=== PATIENT | female | born 1940 | race Hispanic/Latino ===

== ENCOUNTER 2017-10-27 10:42 | Inpatient (IN) | payer MEDICARE, MEDICAID ==
[2017-10-27 12:33] LABS: Basophils % (Auto) 0.5 % (0.0-1.8); Eosinophils % (Auto) 0.1 % (0.0-4.3); Hemoglobin 14.6 gm/dl (10.1-14.3); Lymphocytes % (Auto) 17.4 % (13.4-35.0); Mean Corpuscular HGB Conc 33 % (30-34); Mean Corpuscular Hemoglobin 30 pg (28-32); Mean Corpuscular Volume 91 fl (79-97); Monocytes # (Auto) 0.9 K/mm3 (0.0-0.8); Monocytes % (Auto) 15.7 % (0.0-7.3); Platelet Count 213 K/mm3 (140-440); Red Blood Count 4.84 M/mm3 (3.65-5.03); Red Cell Distribution Width 13.4 % (13.2-15.2)
[2017-10-27] MEDS ORDERED: NACL 0.9% 1000 ML 1,000 ML IV ONE (12:41)
[2017-10-27 12:46] LABS: Bilirubin,Urine NEG (Negative); Blood,Urine MOD (Negative); Color,Urine Yellow (Yellow); Mucus,Urine 3+ /HPF; Nitrite,Urine NEG (Negative); Protein,Urine <15 mg/dL mg/dL (Negative)
[2017-10-27 12:47] LABS: Creatine Kinase MB 1.2 ng/mL (0.0-4.0)
[2017-10-27 12:51] LABS: BUN/Creatinine Ratio 14; Blood Urea Nitrogen 14 mg/dL (7-17); Calcium 9.4 mg/dL (8.4-10.2); Hemolysis Index 6
[2017-10-27 12:58] LABS: Free T4 (Free Thyroxine) 1.14 ng/dL (0.76-1.46)
--- NOTE | 2017-10-27 13:15 | XRay Report ---
AP CHEST: HISTORY: Generalized weakness, cough AP view of the chest demonstrates a normal mediastinal and cardiac contour with clear lungs and normal bony and soft tissue structures. IMPRESSION: No acute cardiopulmonary process identified.
--- NOTE | 2017-10-27 15:10 | Cat Scan Report ---
CT HEAD WITHOUT CONTRAST: HISTORY: Generalized weakness. TECHNIQUE: Sequential CT images without contrast. FINDINGS: Images obtained show bilateral prominence of the sulci and ventricles. There are no abnormal intra- or extra-axial blood or fluid collections. There are no focal masses or evidence of mass effect. The fontenot white matter differentiation appears within normal limits. Regions of periventricular decreased attenuation are consistent with microangiopathic ischemic disease. The posterior fossa structures including the fourth ventricle, cerebellum, and brainstem appear normal. IMPRESSION: Evidence of atrophy and microangiopathic ischemic disease. No acute intracranial process noted.
--- NOTE | 2017-10-27 15:28 | Emergency Department Report ---
- General Chief complaint: Weakness Stated complaint: GENERAl WEAKNESS Time Seen by Provider: 10/27/17 11:41 Source: patient Mode of arrival: Stretcher Limitations: No Limitations - History of Present Illness Initial comments: 76-year-old female the past medical history diabetes and Parkinson's disease presents to the hospital complaining of generalized weakness 2-4 days. Prior to this patient to ambulate without assistance. The last 3-4 days patient is not eating, drinking, and cannot ambulates without significant support. Patient states she does have occasional chest pain but no chest pain today. Dry cough reported. Daughter reports fever 102.6 yesterday. Patient denies abdominal pain, dysuria, or shortness of breath. - Related Data Allergies Allergy/AdvReac Type Severity Reaction Status Date / Time Penicillins Allergy Anaphylaxis Verified 10/27/17 11:24 ED Review of Systems ROS: Stated complaint: GENERAl WEAKNESS Other details as noted in HPI Comment: All other systems reviewed and negative Other: Constitutional: No fevers chills Eyes: No eye pain visual changes ENT: No ear pain or throat pain Neck: Denies pain Respiratory: Denies cough wheezing shortness of breath Cardiovascular: Denies palpitations, syncope GI: Denies abdominal pain, nausea, vomiting, diarrhea : Denies dysuria Musculoskeletal: Denies back pain Skin: Denies rash, lesions, erythema Neurologic: Denies headache, numbness Psychiatric: Denies suicidal ideation, hallucinations ED Past Medical Hx - Past Medical History Hx Diabetes: Yes Additional medical history: parkinsons - Surgical History Past Surgical History?: Yes - Social History Smoking Status: Current Every Day Smoker Substance Use Type: None ED Physical Exam - General Limitations: No Limitations - Other Other exam information: General: No limitations, patient is alert in no acute distress Head exam: Atraumatic, normocephalic Eyes exam: Normal appearance ENT: Moist mucous membrane, normal oropharynx Neck exam: Normal inspection, full range of motion, no meningismus nontender Respiratory exam: Clear to auscultation bilateral, no wheezes, rales, crackles Cardiovascular: Normal rate and rhythm Abdomen: Soft, nondistended, and nontender, with normal bowel sounds, no rebound, or guarding Extremity: Full range of motion normal inspection no deformity Back: Normal Inspection, full range of motion, no tenderness Neurologic: Alert, oriented x3, cranial nerves intact, equal hand licensed tax consultant, equal foot dorsiflexion, however, patient cannot stand without assistance and unable to ambulate without assistive Psychiatric: normal affect, normal mood Skin: Warm, dry, intact ED Course Vital Signs 10/27/17 11:25 Temperature 99.1 F Pulse Rate 98 H Respiratory 16 Rate Blood Pressure 157/71 O2 Sat by Pulse 97 Oximetry - Reevaluation(s) Reevaluation #1: 10/27/17 15:59 Cause of generalized weakness identified at this time. With the Basom form it does show increase in heart rate with standing. Patient complains of lightheadedness with standing and unsteady gait. She will be admitted to the hospital for further evaluation ED Medical Decision Making - Lab Data Result diagrams: 10/27/17 12:00 10/27/17 12:00 Lab Results 10/27/17 10/27/17 10/27/17 Range/Units 12:00 12:00 12:00 WBC 5.6 (4.5-11.0) K/mm3 RBC 4.84 (3.65-5.03) M/mm3 Hgb 14.6 H (10.1-14.3) gm/dl Hct 44.0 H (30.3-42.9) % MCV 91 (79-97) fl MCH 30 (28-32) pg MCHC 33 (30-34) % RDW 13.4 (13.2-15.2) % Plt Count 213 (140-440) K/mm3 Lymph % (Auto) 17.4 (13.4-35.0) % [place] % (Auto) 15.7 H (0.0-7.3) % Eos % (Auto) 0.1 (0.0-4.3) % Baso % (Auto) 0.5 (0.0-1.8) % Lymph # 1.0 L (1.2-5.4) K/mm3 [place] # 0.9 H (0.0-0.8) K/mm3 Eos # 0.0 (0.0-0.4) K/mm3 Baso # 0.0 (0.0-0.1) K/mm3 Seg Neutrophils % 66.3 (40.0-70.0) % Seg Neutrophils # 3.7 (1.8-7.7) K/mm3 Sodium 139 (137-145) mmol/L Potassium 4.2 (3.6-5.0) mmol/L Chloride 97.4 L (98-107) mmol/L Carbon Dioxide 25 (22-30) mmol/L Anion Gap 21 mmol/L BUN 14 (7-17) mg/dL Creatinine 1.0 (0.7-1.2) mg/dL Estimated GFR 54 ml/min BUN/Creatinine Ratio 14 % Glucose 119 H (65-100) mg/dL Calcium 9.4 (8.4-10.2) mg/dL Magnesium 2.20 (1.7-2.3) mg/dL Total Creatine Kinase 269 H (30-135) units/L CK-MB (CK-2) 1.2 (0.0-4.0) ng/mL CK-MB (CK-2) Rel Index 0.4 (0-4) Troponin T < 0.010 (0.00-0.029) ng/mL TSH 1.240 (0.270-4.200) mlU/mL Free T4 1.14 (0.76-1.46) ng/dL Urine Color (Yellow) Urine Turbidity (Clear) Urine pH (5.0-7.0) Ur Specific [place] (1.003-1.030) Urine Protein (Negative) mg/dL Urine Glucose (UA) (Negative) mg/dL Urine Ketones (Negative) mg/dL Urine Blood (Negative) Urine Nitrite (Negative) Urine Bilirubin (Negative) Urine Urobilinogen (<2.0) mg/dL Ur Leukocyte Esterase (Negative) Urine WBC (Auto) (0.0-6.0) /HPF Urine RBC (Auto) (0.0-6.0) /HPF U Epithel Cells (Auto) (0-13.0) /HPF Urine Mucus /HPF 10/27/17 Range/Units 12:23 WBC (4.5-11.0) K/mm3 RBC (3.65-5.03) M/mm3 Hgb (10.1-14.3) gm/dl Hct (30.3-42.9) % MCV (79-97) fl MCH (28-32) pg MCHC (30-34) % RDW (13.2-15.2) % Plt Count (140-440) K/mm3 Lymph % (Auto) (13.4-35.0) % [place] % (Auto) (0.0-7.3) % Eos % (Auto) (0.0-4.3) % Baso % (Auto) (0.0-1.8) % Lymph # (1.2-5.4) K/mm3 [place] # (0.0-0.8) K/mm3 Eos # (0.0-0.4) K/mm3 Baso # (0.0-0.1) K/mm3 Seg Neutrophils % (40.0-70.0) % Seg Neutrophils # (1.8-7.7) K/mm3 Sodium (137-145) mmol/L Potassium (3.6-5.0) mmol/L Chloride (98-107) mmol/L Carbon Dioxide (22-30) mmol/L Anion Gap mmol/L BUN (7-17) mg/dL Creatinine (0.7-1.2) mg/dL Estimated GFR ml/min BUN/Creatinine Ratio % Glucose (65-100) mg/dL Calcium (8.4-10.2) mg/dL Magnesium (1.7-2.3) mg/dL Total Creatine Kinase (30-135) units/L CK-MB (CK-2) (0.0-4.0) ng/mL CK-MB (CK-2) Rel Index (0-4) Troponin T (0.00-0.029) ng/mL TSH (0.270-4.200) mlU/mL Free T4 (0.76-1.46) ng/dL Urine Color Yellow (Yellow) Urine Turbidity Clear (Clear) Urine pH 5.0 (5.0-7.0) Ur Specific [place] 1.020 (1.003-1.030) Urine Protein <15 mg/dl (Negative) mg/dL Urine Glucose (UA) Neg (Negative) mg/dL Urine Ketones Tr (Negative) mg/dL Urine Blood Mod (Negative) Urine Nitrite Neg (Negative) Urine Bilirubin Neg (Negative) Urine Urobilinogen 2.0 (<2.0) mg/dL Ur Leukocyte Esterase Neg (Negative) Urine WBC (Auto) 3.0 (0.0-6.0) /HPF Urine RBC (Auto) 19.0 (0.0-6.0) /HPF U Epithel Cells (Auto) 1.0 (0-13.0) /HPF Urine Mucus 3+ /HPF - EKG Data -: EKG Interpreted by Me (anteroseptal infarct) EKG shows normal: sinus rhythm, axis (29), QRS complexes (78), ST-T waves (no stemi/t inv) Rate: normal (90) - EKG Data When compared to previous EKG there are: previous EKG unavailable - Radiology Data Radiology results: report reviewed Read by radiology Chest x-ray: no acute findings CTA, evidence of atrophy and microangiopathic ischemic disease. No acute intracranial process - Medical Decision Making Normal saline initiated IV 125 mL per hour. source of generalized weakness and identified. Plan to admit for further workup - Differential Diagnosis infection, encephalopathy, dehydration, anemia, PA, thyroid disease, stroke Critical Care Time: No Critical care attestation.: If time is entered above; I have spent that time in minutes in the direct care of this critically ill patient, excluding procedure time. ED Disposition Clinical Impression: Generalized weakness, Poor appetite, Dehydration Disposition: DC-[id number] OP ADMIT IP TO THIS HOSP Is pt being admited?: Yes Time of Disposition: 16:03 (Dr Lovelace/hosp)
[2017-10-27] MEDS ORDERED: TYLENOL PO ONE (16:39)
[2017-10-27] MEDS ORDERED: TYLENOL ONE (16:40)
--- NOTE | 2017-10-27 19:10 | History and Physical Report ---
History of Present Illness Date of examination: 10/27/17 Date of admission: 10/27/17 Chief complaint: CC Fever and Gen weakness for 4 days History of present illness: History of Present Illness 76-year-old female with past medical history of diabetes and Parkinson's disease presents to the hospital complaining of generalized weakness for3-4 days. Prior to this patient to ambulate without assistance. The last 3-4 days patient is not eating, drinking, and cannot ambulates without significant support. Patient states she does have occasional chest pain but no chest pain today. Dry cough reported. Daughter reports fever 102.6 yesterday. Patient denies abdominal pain, dysuria, or shortness of breath. Past Medical History T2DM HTN HLD Osteoporosis Surgical History Past Surgical History?: Yes Social History Smoking Status: Current Every Day Smoker -1ppd Substance Use Type: None Review of Systems Stated complaint: GENERAl WEAKNESS Other details as noted in HPI Comment: All other systems reviewed and negative Other: Constitutional: No fevers chills Eyes: No eye pain visual changes ENT: No ear pain or throat pain Neck: Denies pain Respiratory: Denies cough wheezing shortness of breath Cardiovascular: Denies palpitations, syncope GI: Denies abdominal pain, nausea, vomiting, diarrhea : Denies dysuria Musculoskeletal: Denies back pain Skin: Denies rash, lesions, erythema Neurologic: Denies headache, numbness Psychiatric: Denies suicidal ideation, hallucinations Medications and Allergies Allergies Allergy/AdvReac Type Severity Reaction Status Date / Time Penicillins Allergy Anaphylaxis Verified 10/27/17 11:24 Home Medications Medication Instructions Recorded Confirmed Last Taken Type Alendronate Sodium [Fosamax] 70 mg PO QWEEK 10/27/17 10/27/17 10/25/17 History Aspirin [Adult Low Dose Aspirin EC] 81 mg PO DAILY 10/27/17 10/27/17 10/25/17 History Ezetimibe [Zetia] 10 mg PO QDAY 10/27/17 10/27/17 10/25/17 History Gabapentin [Neurontin] 100 mg PO DAILY 10/27/17 10/27/17 10/25/17 History Oxybutynin [Ditropan] 5 mg PO DAILY 10/27/17 10/27/17 10/25/17 History amLODIPine [Norvasc] 5 mg PO DAILY 10/27/17 10/27/17 10/25/17 History metFORMIN [Glucophage] 500 mg PO QDAY 10/27/17 10/27/17 10/25/17 History Active Meds: Active Medications Sodium Chloride (Nacl 0.9% 1000 Ml) 1,000 mls @ 125 mls/hr IV ONCE ONE Stop: 10/27/17 20:40 Last Admin: 10/27/17 13:27 Dose: 125 mls/hr Exam - Constitutional Vitals: Temp Pulse Resp BP Pulse Ox 99.4 F 98 H 16 116/58 92 10/27/17 18:10 10/27/17 11:25 10/27/17 11:25 10/27/17 18:00 10/27/17 18:00 General appearance: Present: no acute distress, well-nourished - EENT Eyes: Present: PERRL ENT: hearing intact, clear oral mucosa - Neck Neck: Present: supple, normal ROM - Respiratory Respiratory effort: normal Respiratory: bilateral: CTA - Cardiovascular Heart rate: 76 Rhythm: regular Heart Sounds: Present: S1 & S2. Absent: rub, click - Extremities Extremities: no ischemia, pulses intact, pulses symmetrical, No edema Peripheral Pulses: within normal limits - Abdominal General gastrointestinal: Present: soft, non-tender, non-distended, normal bowel sounds Female genitourinary: Present: normal - Rectal Rectal Exam: deferred - Integumentary Integumentary: Present: clear, warm, dry - Musculoskeletal Musculoskeletal: gait normal, strength equal bilaterally - Psychiatric Psychiatric: appropriate mood/affect, intact judgment & insight - Neurologic Neurologic: CNII-XII intact, moves all extremities - Allied Health Allied health notes reviewed: nursing, case management Results - Labs CBC & Chem 7: 10/28/17 04:54 10/28/17 04:54 Labs: Laboratory Last Values WBC 5.6 K/mm3 (4.5-11.0) 10/27/17 12:00 RBC 4.84 M/mm3 (3.65-5.03) 10/27/17 12:00 Hgb 14.6 gm/dl (10.1-14.3) H 10/27/17 12:00 Hct 44.0 % (30.3-42.9) H 10/27/17 12:00 MCV 91 fl (79-97) 10/27/17 12:00 MCH 30 pg (28-32) 10/27/17 12:00 MCHC 33 % (30-34) 10/27/17 12:00 RDW 13.4 % (13.2-15.2) 10/27/17 12:00 Plt Count 213 K/mm3 (140-440) 10/27/17 12:00 Lymph % (Auto) 17.4 % (13.4-35.0) 10/27/17 12:00 [place] % (Auto) 15.7 % (0.0-7.3) H 10/27/17 12:00 Eos % (Auto) 0.1 % (0.0-4.3) 10/27/17 12:00 Baso % (Auto) 0.5 % (0.0-1.8) 10/27/17 12:00 Lymph # 1.0 K/mm3 (1.2-5.4) L 10/27/17 12:00 [place] # 0.9 K/mm3 (0.0-0.8) H 10/27/17 12:00 Eos # 0.0 K/mm3 (0.0-0.4) 10/27/17 12:00 Baso # 0.0 K/mm3 (0.0-0.1) 10/27/17 12:00 Seg Neutrophils % 66.3 % (40.0-70.0) 10/27/17 12:00 Seg Neutrophils # 3.7 K/mm3 (1.8-7.7) 10/27/17 12:00 Sodium 139 mmol/L (137-145) 10/27/17 12:00 Potassium 4.2 mmol/L (3.6-5.0) 10/27/17 12:00 Chloride 97.4 mmol/L (98-107) L 10/27/17 12:00 Carbon Dioxide 25 mmol/L (22-30) 10/27/17 12:00 Anion Gap 21 mmol/L 10/27/17 12:00 BUN 14 mg/dL (7-17) 10/27/17 12:00 Creatinine 1.0 mg/dL (0.7-1.2) 10/27/17 12:00 Estimated GFR 54 ml/min 10/27/17 12:00 BUN/Creatinine Ratio 14 % 10/27/17 12:00 Glucose 119 mg/dL (65-100) H 10/27/17 12:00 Calcium 9.4 mg/dL (8.4-10.2) 10/27/17 12:00 Magnesium 2.20 mg/dL (1.7-2.3) 10/27/17 12:00 Total Creatine Kinase 269 units/L (30-135) H 10/27/17 12:00 CK-MB (CK-2) 1.2 ng/mL (0.0-4.0) 10/27/17 12:00 CK-MB (CK-2) Rel Index 0.4 (0-4) 10/27/17 12:00 Troponin T < 0.010 ng/mL (0.00-0.029) 10/27/17 12:00 TSH 1.240 mlU/mL (0.270-4.200) 10/27/17 12:00 Free T4 1.14 ng/dL (0.76-1.46) 10/27/17 12:00 Urine Color Yellow (Yellow) 10/27/17 12:23 Urine Turbidity Clear (Clear) 10/27/17 12:23 Urine pH 5.0 (5.0-7.0) 10/27/17 12:23 Ur Specific [place] 1.020 (1.003-1.030) 10/27/17 12:23 Urine Protein <15 mg/dl mg/dL (Negative) 10/27/17 12:23 Urine Glucose (UA) Neg mg/dL (Negative) 10/27/17 12:23 Urine Ketones Tr mg/dL (Negative) 10/27/17 12:23 Urine Blood Mod (Negative) 10/27/17 12:23 Urine Nitrite Neg (Negative) 10/27/17 12:23 Urine Bilirubin Neg (Negative) 10/27/17 12:23 Urine Urobilinogen 2.0 mg/dL (<2.0) 10/27/17 12:23 Ur Leukocyte Esterase Neg (Negative) 10/27/17 12:23 Urine WBC (Auto) 3.0 /HPF (0.0-6.0) 10/27/17 12:23 Urine RBC (Auto) 19.0 /HPF (0.0-6.0) 10/27/17 12:23 U Epithel Cells (Auto) 1.0 /HPF (0-13.0) 10/27/17 12:23 Urine Mucus 3+ /HPF 10/27/17 12:23 - Imaging and Cardiology EKG: report reviewed Chest x-ray: report reviewed (NAF) CT Scan - head: report reviewed (NAF) Assessment and Plan Advance Directives: Yes (Full code) VTE prophylaxis?: Chemical Plan of care discussed with patient/family: Yes - Patient Problems (1) SIRS (systemic inflammatory response syndrome) Current Visit: Yes Status: Acute Plan to address problem: Fever of 101.4 in ED.Also fever for 3 to 4 days.No source of infection identified.Willtreat empirically. Patient unable to walk b/c of weakness.Probably from fever.Was eating by herself when i went to examine the patient.Will get ID consult (2) Dehydration Current Visit: Yes Status: Acute Plan to address problem: IV fluids (3) Physical debility Current Visit: Yes Status: Acute Plan to address problem: Probably sec to Fever and Dehydration. PT ordered.May benefit from Home PT (4) Age related osteoporosis Current Visit: Yes Status: Chronic Qualifiers: Presence of current pathological fracture: without current pathological fracture Qualified Code(s): M81.0 - Age-related osteoporosis without current pathological fracture Plan to address problem: Patient on Aledronate.Will discontinue .May benefit only from Caltrate-D (5) HTN (hypertension) Current Visit: Yes Status: Chronic Qualifiers: Hypertension type: essential hypertension Qualified Code(s): I10 - Essential (primary) hypertension Plan to address problem: Cont Antihypertensives. 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
[2017-10-27] MEDS ORDERED: ZOFRAN IV PRN (19:11)
[2017-10-27] MEDS ORDERED: TYLENOL PO PRN (19:11)
[2017-10-27] MEDS ORDERED: MILK OF MAGNESIA PO PRN (19:11)
[2017-10-27] MEDS ORDERED: PERCOCET 5/325 PO PRN (19:11)
[2017-10-27] MEDS ORDERED: DULCOLAX PR PRN (19:11)
[2017-10-27] MEDS ORDERED: AMBIEN PO PRN (19:11)
[2017-10-27] MEDS ORDERED: NOVOLOG SUB-Q ONE ×2 (19:21→20:44)
[2017-10-27] MEDS ORDERED: NORVASC PO SCH (20:00)
[2017-10-27] MEDS: cefTRIAXone 2 GM in NACL 0.9% 20 ML IV SCH (20:31)
[2017-10-27] MEDS ORDERED: LOVENOX SUB-Q ONE (20:45)
[2017-10-27] MEDS: LOVENOX SUB-Q SCH (20:52)
[2017-10-27] MEDS: D5NS 1,000 ML IV SCH (22:35)
[2017-10-27] MEDS: DITROPAN PO SCH (22:35)
[2017-10-28 06:10] LABS: Hematocrit 38.7 % (30.3-42.9); Hemoglobin 13.3 gm/dl (10.1-14.3); Mean Corpuscular HGB Conc 34 % (30-34); Mean Corpuscular Hemoglobin 31 pg (28-32); Mean Corpuscular Volume 89 fl (79-97); Platelet Count 192 K/mm3 (140-440); Red Blood Count 4.36 M/mm3 (3.65-5.03); Red Cell Distribution Width 13.3 % (13.2-15.2)
[2017-10-28 06:28] LABS: Alanine Aminotransferase 11 units/L (7-56); Albumin 3.1 g/dL (3.9-5); BUN/Creatinine Ratio 16; Blood Urea Nitrogen 13 mg/dL (7-17); Hemolysis Index 9
[2017-10-28 07:15] LABS: Basophils % (Manual) 0 % (0.0-1.8); Total Cells Counted 100
[2017-10-28 07:16] LABS: Platelet Estimate Consistent w Auto; RBC Morphology Normal
[2017-10-28] MEDS ORDERED: D50W (25GM) Syringe IV PRN (07:30)
--- NOTE | 2017-10-28 07:32 | Progress Note ---
Assessment and Plan Assessment and plan: 76-year-old female admitted to the floor shows presented to the emergency department with complaints of fever, generalized weakness, decreased oral intake Dehydration - Patient was treated with IV fluids SIRS - patient was given empiric antibiotics - We'll follow culture results Hypertension - Currently borderline hypotension - held blood pressure medications Malnutrition -nutrition consult Debility - Physical therapy consult Diabetes Mellitus - On sliding scale insulin, Accu-Chek, ADA diet, will follow A1c History Interval history: No nursing issues overnight, no fever over the last 24 hours Hospitalist Physical - Physical exam Narrative exam: Not in cardiopulmonary distress. The patient appeared well nourished and normally developed. Vital signs as documented. Head exam is unremarkable. No scleral icterus . Neck is without jugular venous distension, thyromegaly, or carotid bruits. Lungs are clear to auscultation. Cardiac exam reveals regular rate and Rhythm. First and second heart sounds normal. No murmurs, rubs or gallops. Abdominal exam reveals normal bowel sounds, no masses, no organomegaly and no aortic enlargement. Extremities are nonedematous and both femoral and pedal pulses are normal. OTOLARYNGOLOGY REP: Alert and oriented 3. No focal weakness. - Constitutional Vitals: Temp Pulse Resp BP Pulse Ox 98.9 F 84 18 102/63 96 10/27/17 20:15 10/27/17 22:00 10/27/17 22:00 10/27/17 22:12 10/27/17 22:12 General appearance: Present: no acute distress, well-nourished Results - Labs CBC & Chem 7: 10/28/17 04:54 10/28/17 04:54 Labs: Laboratory Last Values WBC 4.1 K/mm3 (4.5-11.0) L 10/28/17 04:54 RBC 4.36 M/mm3 (3.65-5.03) 10/28/17 04:54 Hgb 13.3 gm/dl (10.1-14.3) 10/28/17 04:54 Hct 38.7 % (30.3-42.9) 10/28/17 04:54 MCV 89 fl (79-97) 10/28/17 04:54 MCH 31 pg (28-32) 10/28/17 04:54 MCHC 34 % (30-34) 10/28/17 04:54 RDW 13.3 % (13.2-15.2) 10/28/17 04:54 Plt Count 192 K/mm3 (140-440) 10/28/17 04:54 Lymph % (Auto) 17.4 % (13.4-35.0) 10/27/17 12:00 [place] % (Auto) Pbx Technician 10/28/17 04:54 Eos % (Auto) 0.1 % (0.0-4.3) 10/27/17 12:00 Baso % (Auto) 0.5 % (0.0-1.8) 10/27/17 12:00 Lymph # 1.0 K/mm3 (1.2-5.4) L 10/27/17 12:00 [place] # 0.9 K/mm3 (0.0-0.8) H 10/27/17 12:00 Eos # 0.0 K/mm3 (0.0-0.4) 10/27/17 12:00 Baso # 0.0 K/mm3 (0.0-0.1) 10/27/17 12:00 Add Manual Diff Complete 10/28/17 04:54 Total Counted 100 10/28/17 04:54 Seg Neutrophils % 66.3 % (40.0-70.0) 10/27/17 12:00 Seg Neuts % (Manual) 58.0 % (40.0-70.0) 10/28/17 04:54 Band Neutrophils % 0 % 10/28/17 04:54 Lymphocytes % (Manual) 22.0 % (13.4-35.0) 10/28/17 04:54 Reactive Lymphs % (Man) 0 % 10/28/17 04:54 Monocytes % (Manual) 19.0 % (0.0-7.3) H 10/28/17 04:54 Eosinophils % (Manual) 1.0 % (0.0-4.3) 10/28/17 04:54 Basophils % (Manual) 0 % (0.0-1.8) 10/28/17 04:54 Metamyelocytes % 0 % 10/28/17 04:54 Myelocytes % 0 % 10/28/17 04:54 Promyelocytes % 0 % 10/28/17 04:54 Blast Cells % 0 % 10/28/17 04:54 Nucleated RBC % Not Reportable 10/28/17 04:54 Seg Neutrophils # 3.7 K/mm3 (1.8-7.7) 10/27/17 12:00 Seg Neutrophils # Man 2.4 K/mm3 (1.8-7.7) 10/28/17 04:54 Band Neutrophils # 0.0 K/mm3 10/28/17 04:54 Lymphocytes # (Manual) 0.9 K/mm3 (1.2-5.4) L 10/28/17 04:54 Abs React Lymphs (Man) 0.0 K/mm3 10/28/17 04:54 Monocytes # (Manual) 0.8 K/mm3 (0.0-0.8) 10/28/17 04:54 Eosinophils # (Manual) 0.0 K/mm3 (0.0-0.4) 10/28/17 04:54 Basophils # (Manual) 0.0 K/mm3 (0.0-0.1) 10/28/17 04:54 Metamyelocytes # 0.0 K/mm3 10/28/17 04:54 Myelocytes # 0.0 K/mm3 10/28/17 04:54 Promyelocytes # 0.0 K/mm3 10/28/17 04:54 Blast Cells # 0.0 K/mm3 10/28/17 04:54 WBC Morphology Not Reportable 10/28/17 04:54 Hypersegmented Neuts Not Reportable 10/28/17 04:54 Hyposegmented Neuts Not Reportable 10/28/17 04:54 Hypogranular Neuts Not Reportable 10/28/17 04:54 Smudge Cells Not Reportable 10/28/17 04:54 Toxic Granulation Not Reportable 10/28/17 04:54 Toxic Vacuolation Not Reportable 10/28/17 04:54 Dohle Bodies Not Reportable 10/28/17 04:54 Pelger-Huet Anomaly Not Reportable 10/28/17 04:54 Josephine Rods Not Reportable 10/28/17 04:54 Platelet Estimate Consistent w auto 10/28/17 04:54 Clumped Platelets Not Reportable 10/28/17 04:54 Plt Clumps, EDTA Not Reportable 10/28/17 04:54 Large Platelets Not Reportable 10/28/17 04:54 Giant Platelets Not Reportable 10/28/17 04:54 Platelet Satelliting Not Reportable 10/28/17 04:54 Plt Morphology Comment Not Reportable 10/28/17 04:54 RBC Morphology Normal 10/28/17 04:54 Dimorphic RBCs Not Reportable 10/28/17 04:54 Polychromasia Not Reportable 10/28/17 04:54 Hypochromasia Not Reportable 10/28/17 04:54 Poikilocytosis Not Reportable 10/28/17 04:54 Anisocytosis Not Reportable 10/28/17 04:54 Microcytosis Not Reportable 10/28/17 04:54 Macrocytosis Not Reportable 10/28/17 04:54 Spherocytes Not Reportable 10/28/17 04:54 Pappenheimer Bodies Not Reportable 10/28/17 04:54 Sickle Cells Not Reportable 10/28/17 04:54 Target Cells Not Reportable 10/28/17 04:54 Tear Drop Cells Not Reportable 10/28/17 04:54 Ovalocytes Not Reportable 10/28/17 04:54 Helmet Cells Not Reportable 10/28/17 04:54 [place]hal[place]wal-[place] Bodies Not Reportable 10/28/17 04:54 [place] Rings Not Reportable 10/28/17 04:54 [place] Cells Not Reportable 10/28/17 04:54 Bite Cells Not Reportable 10/28/17 04:54 Crenated Cell Not Reportable 10/28/17 04:54 Elliptocytes Not Reportable 10/28/17 04:54 Acanthocytes (Spur) Not Reportable 10/28/17 04:54 Rouleaux Not Reportable 10/28/17 04:54 Hemoglobin C Crystals Not Reportable 10/28/17 04:54 Schistocytes Not Reportable 10/28/17 04:54 Malaria parasites Not Reportable 10/28/17 04:54 Solomon Bodies Not Reportable 10/28/17 04:54 Hem Pathologist Commnt No 10/28/17 04:54 Sodium 139 mmol/L (137-145) 10/28/17 04:54 Potassium 3.7 mmol/L (3.6-5.0) 10/28/17 04:54 Chloride 101.1 mmol/L (98-107) 10/28/17 04:54 Carbon Dioxide 22 mmol/L (22-30) 10/28/17 04:54 Anion Gap 20 mmol/L 10/28/17 04:54 BUN 13 mg/dL (7-17) 10/28/17 04:54 Creatinine 0.8 mg/dL (0.7-1.2) 10/28/17 04:54 Estimated GFR > 60 ml/min 10/28/17 04:54 BUN/Creatinine Ratio 16 % 10/28/17 04:54 Glucose 180 mg/dL (65-100) H 10/28/17 04:54 POC Glucose 150 (70-105) H 10/27/17 20:22 Calcium 8.0 mg/dL (8.4-10.2) L 10/28/17 04:54 Magnesium 2.20 mg/dL (1.7-2.3) 10/27/17 12:00 Total Bilirubin 0.20 mg/dL (0.1-1.2) 10/28/17 04:54 AST 22 units/L (5-40) 10/28/17 04:54 ALT 11 units/L (7-56) 10/28/17 04:54 Alkaline Phosphatase 46 units/L (35-129) 10/28/17 04:54 Total Creatine Kinase 269 units/L (30-135) H 10/27/17 12:00 CK-MB (CK-2) 1.2 ng/mL (0.0-4.0) 10/27/17 12:00 CK-MB (CK-2) Rel Index 0.4 (0-4) 10/27/17 12:00 Troponin T < 0.010 ng/mL (0.00-0.029) 10/27/17 12:00 Total Protein 6.6 g/dL (6.3-8.2) 10/28/17 04:54 Albumin 3.1 g/dL (3.9-5) L 10/28/17 04:54 Albumin/Globulin Ratio 0.9 % 10/28/17 04:54 TSH 1.240 mlU/mL (0.270-4.200) 10/27/17 12:00 Free T4 1.14 ng/dL (0.76-1.46) 10/27/17 12:00 Urine Color Yellow (Yellow) 10/27/17 12:23 Urine Turbidity Clear (Clear) 10/27/17 12:23 Urine pH 5.0 (5.0-7.0) 10/27/17 12:23 Ur Specific [place] 1.020 (1.003-1.030) 10/27/17 12:23 Urine Protein <15 mg/dl mg/dL (Negative) 10/27/17 12:23 Urine Glucose (UA) Neg mg/dL (Negative) 10/27/17 12:23 Urine Ketones Tr mg/dL (Negative) 10/27/17 12:23 Urine Blood Mod (Negative) 10/27/17 12:23 Urine Nitrite Neg (Negative) 10/27/17 12:23 Urine Bilirubin Neg (Negative) 10/27/17 12:23 Urine Urobilinogen 2.0 mg/dL (<2.0) 10/27/17 12:23 Ur Leukocyte Esterase Neg (Negative) 10/27/17 12:23 Urine WBC (Auto) 3.0 /HPF (0.0-6.0) 10/27/17 12:23 Urine RBC (Auto) 19.0 /HPF (0.0-6.0) 10/27/17 12:23 U Epithel Cells (Auto) 1.0 /HPF (0-13.0) 10/27/17 12:23 Urine Mucus 3+ /HPF 10/27/17 12:23
[2017-10-28] MEDS: D5NS 1,000 ML IV SCH (07:45)
[2017-10-28] MEDS: DITROPAN PO SCH (09:04)
[2017-10-28] MEDS: NOVOLOG SUB-Q SCH ×4 (09:04→23:32)
[2017-10-28] MEDS: HALFPRIN EC PO SCH (09:04)
[2017-10-28] MEDS: LOVENOX SUB-Q SCH (09:04)
[2017-10-28] MEDS ORDERED: ROCEPHIN/NS 2 GM/100 ML 2 GM/100 ML BAG IV SCH (10:00)
[2017-10-28] MEDS ORDERED: GUAIFENESIN DM SYRUP PO PRN (10:10)
[2017-10-28] MEDS: NACL 0.9% 1000 ML 1,000 ML IV SCH ×2 (10:50→22:29)
--- NOTE | 2017-10-28 11:28 | Query- Nutrition ---
Deajackelyn Jang Date:__10/28/2017 Information Systems Architect/CDS:___Dee Phone#:[phone] Exercise your independent professional judgment when responding to query. Questions asked do not imply a particular answer is desired or expected. We greatly appreciate your clarification on this issue. Clinical Documentation States: 76 Year old famle was admitted on 10/27/2017 with complaints of fever, generalized weakness, decreased oral intake. The Hospitalist (Sr. Nicolas) progress note on 10/28/2017 states "Dehydration - Patient was treated with IV fluids Malnutrition -nutrition consult Debility - Physical therapy consult." Clinical Findings Show: Albumin: 3.1 Please select the most appropriate option 3 [] Mild Malnutrition [x] Mild - Moderate Malnutrition [] Moderate - Severe Malnutrition [] Severe Malnutrition Serum Albumin 2.8 to 3.4 g/dl or Pre-albumin 5 to 17 mg/dl1,2 Inadequate nutritional intake1,2,3,4 NPO > 5 days Weight loss: 5% in 1 month or 7.5% in 3 months or 10% in 6 months1, 3,4 BMI 16 to 18.4 or Weight <90% of ideal body weight1,2,3,4 Serum Albumin < 2.8 g/ dl1,2 Lymphocytes < 1500/ L2 Inadequate nutritional intake3, high stress e.g. major trauma, sepsis,pancreatitis, rolle etc. Decubitus ulcers1,2, , skin breakdown2, easy hair pluckability2 Weight <80% standard for height2 Triceps skin fold <3 mm2 Mid-arm muscle circumference <15 cm2 Creatinine-height index <60% standard2 [ ] Cachexia [ ] Emaciated w/Malnutrition [ ] Other: [ ] Unable to determine [ ] Comment/Explanation: Present on Admission: [x ] Yes (Y) [ ] Clinically undeterminable (W) [ ] No (N) Please also document response in your Progress Notes and/or Discharge Summary and indicate if the condition was present on admission. MTDD
[2017-10-28] MEDS: HABITROL TD SCH (13:59)
[2017-10-28] MEDS: cefTRIAXone 2 GM in NACL 0.9% 20 ML IV SCH (20:43)
[2017-10-29 05:48] LABS: Hematocrit 36.9 % (30.3-42.9); Hemoglobin 12.3 gm/dl (10.1-14.3); Mean Corpuscular HGB Conc 33 % (30-34); Mean Corpuscular Hemoglobin 30 pg (28-32); Mean Corpuscular Volume 89 fl (79-97); Platelet Count 164 K/mm3 (140-440); Red Blood Count 4.17 M/mm3 (3.65-5.03); Red Cell Distribution Width 13.2 % (13.2-15.2)
[2017-10-29 06:11] LABS: BUN/Creatinine Ratio 11; Blood Urea Nitrogen 8 mg/dL (7-17); Calcium 7.9 mg/dL (8.4-10.2); Hemolysis Index 55
[2017-10-29 06:43] LABS: Basophils % (Manual) 0 % (0.0-1.8); Eosinophils % (Manual) 0 % (0.0-4.3); Platelet Estimate Consistent w Auto; RBC Morphology Normal; Total Cells Counted 100
[2017-10-29] MEDS: NOVOLOG SUB-Q SCH ×4 (07:30→22:34)
[2017-10-29] MEDS: LOVENOX SUB-Q SCH (11:53)
[2017-10-29] MEDS: DITROPAN PO SCH (11:53)
[2017-10-29] MEDS: HALFPRIN EC PO SCH (11:53)
[2017-10-29] MEDS: HABITROL TD SCH (11:53)
--- NOTE | 2017-10-29 16:45 | Progress Note ---
Assessment and Plan Assessment and plan: 76-year-old female admitted to the floor shows presented to the emergency department with complaints of fever, generalized weakness, decreased oral intake Dehydration - Patient was treated with IV fluids SIRS - patient was given empiric antibiotics - We'll follow culture results - Patient still had seizure this morning Hypertension - Currently borderline hypotension - held blood pressure medications Malnutrition -nutrition consult Debility - Physical therapy consult Diabetes Mellitus - On sliding scale insulin, Accu-Chek, ADA diet, will follow A1c Disposition - Patient will be discharged if the patient become fever free for 24hours. History Interval history: No nursing issues overnight, patient had episode of fever 102.4 this morning. No chest pain or shortness of breath. Hospitalist Physical - Physical exam Narrative exam: Not in cardiopulmonary distress. The patient appeared well nourished and normally developed. Vital signs as documented. Head exam is unremarkable. No scleral icterus . Neck is without jugular venous distension, thyromegaly, or carotid bruits. Lungs are clear to auscultation. Cardiac exam reveals regular rate and Rhythm. First and second heart sounds normal. No murmurs, rubs or gallops. Abdominal exam reveals normal bowel sounds, no masses, no organomegaly and no aortic enlargement. Extremities are nonedematous and both femoral and pedal pulses are normal. HOSPICE SOCIAL WORKER: Alert and oriented 3. No focal weakness. - Constitutional Vitals: Temp Pulse Resp BP Pulse Ox 98.7 F 80 20 114/58 92 10/29/17 13:57 10/29/17 13:57 10/29/17 13:57 10/29/17 13:57 10/29/17 13:57 General appearance: Present: no acute distress, well-nourished Results - Labs CBC & Chem 7: 10/29/17 04:34 10/29/17 04:34 Labs: Laboratory Last Values WBC 3.6 K/mm3 (4.5-11.0) L 10/29/17 04:34 RBC 4.17 M/mm3 (3.65-5.03) 10/29/17 04:34 Hgb 12.3 gm/dl (10.1-14.3) 10/29/17 04:34 Hct 36.9 % (30.3-42.9) 10/29/17 04:34 MCV 89 fl (79-97) 10/29/17 04:34 MCH 30 pg (28-32) 10/29/17 04:34 MCHC 33 % (30-34) 10/29/17 04:34 RDW 13.2 % (13.2-15.2) 10/29/17 04:34 Plt Count 164 K/mm3 (140-440) 10/29/17 04:34 Lymph % (Auto) 17.4 % (13.4-35.0) 10/27/17 12:00 [place] % (Auto) Director Of Contracts 10/29/17 04:34 Eos % (Auto) 0.1 % (0.0-4.3) 10/27/17 12:00 Baso % (Auto) 0.5 % (0.0-1.8) 10/27/17 12:00 Lymph # 1.0 K/mm3 (1.2-5.4) L 10/27/17 12:00 [place] # 0.9 K/mm3 (0.0-0.8) H 10/27/17 12:00 Eos # 0.0 K/mm3 (0.0-0.4) 10/27/17 12:00 Baso # 0.0 K/mm3 (0.0-0.1) 10/27/17 12:00 Add Manual Diff Complete 10/29/17 04:34 Total Counted 100 10/29/17 04:34 Seg Neutrophils % 66.3 % (40.0-70.0) 10/27/17 12:00 Seg Neuts % (Manual) 73.0 % (40.0-70.0) H 10/29/17 04:34 Band Neutrophils % 1.0 % 10/29/17 04:34 Lymphocytes % (Manual) 14.0 % (13.4-35.0) 10/29/17 04:34 Reactive Lymphs % (Man) 0 % 10/29/17 04:34 Monocytes % (Manual) 12.0 % (0.0-7.3) H 10/29/17 04:34 Eosinophils % (Manual) 0 % (0.0-4.3) 10/29/17 04:34 Basophils % (Manual) 0 % (0.0-1.8) 10/29/17 04:34 Metamyelocytes % 0 % 10/29/17 04:34 Myelocytes % 0 % 10/29/17 04:34 Promyelocytes % 0 % 10/29/17 04:34 Blast Cells % 0 % 10/29/17 04:34 Nucleated RBC % Not Reportable 10/29/17 04:34 Seg Neutrophils # 3.7 K/mm3 (1.8-7.7) 10/27/17 12:00 Seg Neutrophils # Man 2.6 K/mm3 (1.8-7.7) 10/29/17 04:34 Band Neutrophils # 0.0 K/mm3 10/29/17 04:34 Lymphocytes # (Manual) 0.5 K/mm3 (1.2-5.4) L 10/29/17 04:34 Abs React Lymphs (Man) 0.0 K/mm3 10/29/17 04:34 Monocytes # (Manual) 0.4 K/mm3 (0.0-0.8) 10/29/17 04:34 Eosinophils # (Manual) 0.0 K/mm3 (0.0-0.4) 10/29/17 04:34 Basophils # (Manual) 0.0 K/mm3 (0.0-0.1) 10/29/17 04:34 Metamyelocytes # 0.0 K/mm3 10/29/17 04:34 Myelocytes # 0.0 K/mm3 10/29/17 04:34 Promyelocytes # 0.0 K/mm3 10/29/17 04:34 Blast Cells # 0.0 K/mm3 10/29/17 04:34 WBC Morphology Not Reportable 10/29/17 04:34 Hypersegmented Neuts Not Reportable 10/29/17 04:34 Hyposegmented Neuts Not Reportable 10/29/17 04:34 Hypogranular Neuts Not Reportable 10/29/17 04:34 Smudge Cells Not Reportable 10/29/17 04:34 Toxic Granulation Not Reportable 10/29/17 04:34 Toxic Vacuolation Not Reportable 10/29/17 04:34 Dohle Bodies Not Reportable 10/29/17 04:34 Pelger-Huet Anomaly Not Reportable 10/29/17 04:34 Josephine Rods Not Reportable 10/29/17 04:34 Platelet Estimate Consistent w auto 10/29/17 04:34 Clumped Platelets Not Reportable 10/29/17 04:34 Plt Clumps, EDTA Not Reportable 10/29/17 04:34 Large Platelets Not Reportable 10/29/17 04:34 Giant Platelets Not Reportable 10/29/17 04:34 Platelet Satelliting Not Reportable 10/29/17 04:34 Plt Morphology Comment Not Reportable 10/29/17 04:34 RBC Morphology Normal 10/29/17 04:34 Dimorphic RBCs Not Reportable 10/29/17 04:34 Polychromasia Not Reportable 10/29/17 04:34 Hypochromasia Not Reportable 10/29/17 04:34 Poikilocytosis Not Reportable 10/29/17 04:34 Anisocytosis Not Reportable 10/29/17 04:34 Microcytosis Not Reportable 10/29/17 04:34 Macrocytosis Not Reportable 10/29/17 04:34 Spherocytes Not Reportable 10/29/17 04:34 Pappenheimer Bodies Not Reportable 10/29/17 04:34 Sickle Cells Not Reportable 10/29/17 04:34 Target Cells Not Reportable 10/29/17 04:34 Tear Drop Cells Not Reportable 10/29/17 04:34 Ovalocytes Not Reportable 10/29/17 04:34 Helmet Cells Not Reportable 10/29/17 04:34 Dhal[place]wal-[place] Bodies Not Reportable 10/29/17 04:34 [place] Rings Not Reportable 10/29/17 04:34 [place] Cells Not Reportable 10/29/17 04:34 Bite Cells Not Reportable 10/29/17 04:34 Crenated Cell Not Reportable 10/29/17 04:34 Elliptocytes Not Reportable 10/29/17 04:34 Acanthocytes (Spur) Not Reportable 10/29/17 04:34 Rouleaux Not Reportable 10/29/17 04:34 Hemoglobin C Crystals Not Reportable 10/29/17 04:34 Schistocytes Not Reportable 10/29/17 04:34 Malaria parasites Not Reportable 10/29/17 04:34 Solomon Bodies Not Reportable 10/29/17 04:34 Hem Pathologist Commnt No 10/29/17 04:34 Sodium 138 mmol/L (137-145) 10/29/17 04:34 Potassium 3.9 mmol/L (3.6-5.0) 10/29/17 04:34 Chloride 102.2 mmol/L (98-107) 10/29/17 04:34 Carbon Dioxide 23 mmol/L (22-30) 10/29/17 04:34 Anion Gap 17 mmol/L 10/29/17 04:34 BUN 8 mg/dL (7-17) 10/29/17 04:34 Creatinine 0.7 mg/dL (0.7-1.2) 10/29/17 04:34 Estimated GFR > 60 ml/min 10/29/17 04:34 BUN/Creatinine Ratio 11 % 10/29/17 04:34 Glucose 115 mg/dL (65-100) H 10/29/17 04:34 POC Glucose 152 (70-105) H 10/29/17 12:11 Hemoglobin A1c 6.3 % (4-6) H 10/28/17 04:54 Calcium 7.9 mg/dL (8.4-10.2) L 10/29/17 04:34 Magnesium 2.20 mg/dL (1.7-2.3) 10/27/17 12:00 Total Bilirubin 0.20 mg/dL (0.1-1.2) 10/28/17 04:54 AST 22 units/L (5-40) 10/28/17 04:54 ALT 11 units/L (7-56) 10/28/17 04:54 Alkaline Phosphatase 46 units/L (35-129) 10/28/17 04:54 Total Creatine Kinase 269 units/L (30-135) H 10/27/17 12:00 CK-MB (CK-2) 1.2 ng/mL (0.0-4.0) 10/27/17 12:00 CK-MB (CK-2) Rel Index 0.4 (0-4) 10/27/17 12:00 Troponin T < 0.010 ng/mL (0.00-0.029) 10/27/17 12:00 Total Protein 6.6 g/dL (6.3-8.2) 10/28/17 04:54 Albumin 3.1 g/dL (3.9-5) L 10/28/17 04:54 Albumin/Globulin Ratio 0.9 % 10/28/17 04:54 TSH 1.240 mlU/mL (0.270-4.200) 10/27/17 12:00 Free T4 1.14 ng/dL (0.76-1.46) 10/27/17 12:00 Urine Color Yellow (Yellow) 10/27/17 12:23 Urine Turbidity Clear (Clear) 10/27/17 12:23 Urine pH 5.0 (5.0-7.0) 10/27/17 12:23 Ur Specific [place] 1.020 (1.003-1.030) 10/27/17 12:23 Urine Protein <15 mg/dl mg/dL (Negative) 10/27/17 12:23 Urine Glucose (UA) Neg mg/dL (Negative) 10/27/17 12:23 Urine Ketones Tr mg/dL (Negative) 10/27/17 12:23 Urine Blood Mod (Negative) 10/27/17 12:23 Urine Nitrite Neg (Negative) 10/27/17 12:23 Urine Bilirubin Neg (Negative) 10/27/17 12:23 Urine Urobilinogen 2.0 mg/dL (<2.0) 10/27/17 12:23 Ur Leukocyte Esterase Neg (Negative) 10/27/17 12:23 Urine WBC (Auto) 3.0 /HPF (0.0-6.0) 10/27/17 12:23 Urine RBC (Auto) 19.0 /HPF (0.0-6.0) 10/27/17 12:23 U Epithel Cells (Auto) 1.0 /HPF (0-13.0) 10/27/17 12:23 Urine Mucus 3+ /HPF 10/27/17 12:23
[2017-10-29] MEDS: cefTRIAXone 2 GM in NACL 0.9% 20 ML IV SCH (19:50)
[2017-10-30] MEDS: NACL 0.9% 1000 ML 1,000 ML IV SCH ×2 (00:20→10:46)
[2017-10-30 07:24] LABS: BUN/Creatinine Ratio 10; Blood Urea Nitrogen 6 mg/dL (7-17); Calcium 8.1 mg/dL (8.4-10.2); Hemolysis Index 9
[2017-10-30] MEDS: NOVOLOG SUB-Q SCH (07:45)
[2017-10-30 08:07] VITALS: BP 143/70
[2017-10-30] MEDS ORDERED: K-DUR PO NR (08:55)
--- NOTE | 2017-10-30 09:01 | Discharge Summary ---
Providers - Providers Date of Admission: 10/27/17 19:11 Date of discharge: 10/30/17 Attending physician: WILSON JOSÉ MD 10/27/17 19:20 Physical Therapy Evaluation and Treat [CONS] Routine Comment: Reason For Exam: debility 10/28/17 07:25 Consult to Dietitian/Nutrition [CONS] Routine Physician Instructions: Reason For Exam: Reason for Consult: Malnutrition Primary care physician: SOFTWARE QUALITY ASSURANCE ANALYST Hospitalization Reason for admission: Debility, FUO, dehydration Condition: Stable Pertinent studies: CXR normal Echo normal Hospital course: 76-year-old female with past medical history of diabetes and Parkinson's disease presents to the hospital complaining of generalized weakness for3-4 days. Prior to this patient to ambulate without assistance. The last 3-4 days patient is not eating, drinking, and cannot ambulates without significant support. Patient states she does have occasional chest pain but no chest pain today. Dry cough reported. Daughter reports fever 102.6 yesterday. Patient denies abdominal pain, dysuria, or shortness of breath. Patiuent was emperically treated with IV antibiotics and fever subsided. PT evaluated the patient and recommend HHPT. patient was discharged with HHPT and short term emperic IV antibiotic. patient was hemodynamically stable at the time of discharge, Management plan was discussed with her daughter. Disposition: DC-01 TO HOME OR SELFCARE Time spent for discharge: 31 minutes - Discharge Diagnoses (1) Dehydration Status: Acute (2) Fever, unknown origin Status: Acute (3) Generalized weakness Status: Acute (4) Physical debility Status: Acute (5) Poor appetite Status: Acute (6) SIRS (systemic inflammatory response syndrome) Status: Acute (7) T2DM (type 2 diabetes mellitus) Status: Chronic Qualifiers: Diabetes mellitus complication status: without complication Diabetes mellitus jail insulin use: without manager long term care use Qualified Code(s): E11.9 - Type 2 diabetes mellitus without complications Core Measure Documentation - Palliative Care Palliative Care/ Comfort Measures: Not Applicable - Core Measures Any of the following diagnoses?: none Exam - Physical Exam Narrative exam: Not in cardiopulmonary distress. The patient appeared well nourished and normally developed. Vital signs as documented. Head exam is unremarkable. No scleral icterus . Neck is without jugular venous distension, thyromegaly, or carotid bruits. Lungs are clear to auscultation. Cardiac exam reveals regular rate and Rhythm. First and second heart sounds normal. No murmurs, rubs or gallops. Abdominal exam reveals normal bowel sounds, no masses, no organomegaly and no aortic enlargement. Extremities are nonedematous and both femoral and pedal pulses are normal. SEED CONE PICKER: Alert and oriented 3. No focal weakness. - Constitutional Vitals: Temp Pulse Resp BP Pulse Ox 98.7 F 92 H 24 143/70 91 10/30/17 08:04 10/30/17 08:04 10/30/17 08:04 10/30/17 08:04 10/30/17 08:04 Plan Activity: fall precautions Weight Bearing Status: Weight Bear as Tolerated Diet: low cholesterol, low salt, diabetic Additional Instructions: Please follow @[facility] in 2 weeks Follow up with: PRIMARY CAREMD [Primary Care Provider] - 10 Days Prescriptions: Levofloxacin [Levaquin TAB] 500 mg PO QDAY #5 tablet
[2017-10-30] MEDS: HALFPRIN EC PO SCH (10:46)
[2017-10-30] MEDS: LOVENOX SUB-Q SCH (10:47)
[2017-10-30] MEDS: DITROPAN PO SCH (10:47)
== END 2017-10-30 15:45 | disposition home health service (06) | DRG 641 ==
LOC: ED 10:42 → 3A 19:11
PROVIDERS: ADMIT Internal Medicine; ATTEND Internal Medicine
DX: E86.0 Dehydration (principal); R65.10 Systemic inflammatory response syndrome (SIRS) of non-infectious origin without acute organ dysfunction; E44.0 Moderate protein-calorie malnutrition; R50.9 Fever, unspecified; R53.81 Other malaise; E78.5 Hyperlipidemia, unspecified; E11.8 Type 2 diabetes mellitus with unspecified complications; I10 Essential (primary) hypertension; M81.0 Age-related osteoporosis without current pathological fracture; G20 Parkinson's disease; R53.1 Weakness; F17.200 Nicotine dependence, unspecified, uncomplicated; Z68.24 Body mass index [BMI] 24.0-24.9, adult; Z88.0 Allergy status to penicillin
CPT/HCPCS: 36415; 70450; 71010; 80048; 80053; 81001; 82550; 82553; 82962; 83036; 83735; 84439; 84443; 84484; 85007; 85025; 87040; 87086; 87400; 93005; 93010; 93306; 96372; 96374; 99406; J0696; J1650; J1815; J7030; J7042